=== PATIENT | male | born 1950 | race Caucasian/White ===

== ENCOUNTER → 2018-03-11 | Day surgery (SDC) | payer MEDICARE, OTHER ==
[~2018-03-11] MED LIST: Propofol 200 MG/20 ML SDV IV ONE
[2018-03-11] MEDS: Lactated Ringers 1,000 ML IV SCH (09:47)
--- NOTE | 2018-03-11 14:00 | OR ---
DATE OF OPERATION: 03/11/2018 PREOPERATIVE DIAGNOSIS: CHRONIC GASTROESOPHAGEAL REFLUX DISEASE. POSTOPERATIVE DIAGNOSIS: CHRONIC GASTROESOPHAGEAL REFLUX DISEASE. SURGEON: Mono Hein MD PROCEDURE: EGD WITH BIOPSIES X4, JOANNE. ANESTHESIA: [employer] due to chronic GERD. COMPLICATIONS: None. SPECIMEN: 1. Duodenal bulb biopsy x1. 2. Distal esophageal biopsy x2. 3. Fundal biopsy x1. 4. Antral JOANNE. FINDINGS: 1. Full-length EGD. 2. Duodenitis, duodenal bulb without ulceration. 3. Minimal fundal gastritis. 4. Small hiatal hernia with nonobstructing Schatzki's ring. 5. Short segment Greenberg's versus mild esophagitis. RECOMMENDATIONS: Medical follow up with Dr. Ramirez pending path report. INDICATIONS: The patient has a long and extensive history of reflux. He has been having some ongoing symptoms associated with weight loss, not having any dysphagia. Dr. Ramirez recommended EGD. DESCRIPTION OF PROCEDURE: The patient was prepped and draped, placed in the left lateral decubitus position. A lubricated Olympus gastroscope was inserted over a bit, and easily intubated into the esophagus. The esophageal lining was essentially benign in its entire course until its most distal portion. The patient has a small hiatal hernia with nonobstructing Schatzki's ring present. There is minimal if any esophagitis and possibly couple small short segments of Greenberg's. Biopsies of those areas were taken. The scope was easily advanced into the stomach through the pylorus and into the second portion of the duodenum. The second portion of duodenum was benign. Duodenal bulb had some mild to moderate duodenitis without any ulceration or erosion. Biopsy was taken for confirmation. The scope was brought back into the stomach and retroflexed. The upper fundus and cardia appeared to be benign. It was very difficult to insufflate and visualize in these upper areas, but no gross abnormalities were seen. Upon straightening the antrum and distal portion of the fundus were unremarkable, the patient did have a few scattered areas of focal gastritis in the proximal to mid fundus and the biopsy was taken of that. As stated earlier, it was hard to see the upper fundus and cardia portion of the stomach. The scope was brought back up into the distal esophagus and the prior biopsies showed resolution of bleeding. Air was suctioned from the stomach and the scope was removed without complication. SABAS/DIANE /[id number] cc: [place] [id number]
== END ==
LOC: CC.SDS 09:17
PROVIDERS: ATTEND Family Medicine
DX: K21.9 Gastro-esophageal reflux disease without esophagitis (principal); K29.80 Duodenitis without bleeding; K44.9 Diaphragmatic hernia without obstruction or gangrene; K22.2 Esophageal obstruction; K29.50 Unspecified chronic gastritis without bleeding; E11.9 Type 2 diabetes mellitus without complications; E55.9 Vitamin D deficiency, unspecified; E78.5 Hyperlipidemia, unspecified; M19.90 Unspecified osteoarthritis, unspecified site; N40.0 Benign prostatic hyperplasia without lower urinary tract symptoms; Z79.82 Long term (current) use of aspirin; Z79.84 Long term (current) use of oral hypoglycemic drugs; Z79.899 Other long term (current) drug therapy; Z98.890 Other specified postprocedural states
CPT/HCPCS: 00731; 87081; J2704; J7120